=== PATIENT | female | born 1960 | race Caucasian/White ===

== ENCOUNTER 2018-09-24 11:22 | Inpatient (IN) | payer OTHER ==
[~2018-09-24] VITALS: Ht 167.6 cm; Wt 148.3 kg
[2018-09-24] MEDS ORDERED: IBUPROFEN 400 MG TABLET ONE ×2 (11:33→18:14)
--- NOTE | 2018-09-24 11:36 | NUR ---
[id number], C/O R KNEE PAIN S/P SLIPPED AND FALL, FROM HOME, PS 8. STATES WHEN LAYING DOWN, PAIN IS /10. AOX4, ROOM AIR, VSS. SKIN INTACT. READY FOR EVAL.
[2018-09-24] MEDS ORDERED: LOSA50TA39 PO (11:41)
[2018-09-24] MEDS ORDERED: INSU100I14 SQ (11:41)
[2018-09-24] MEDS ORDERED: ATOR40TA PO (11:41)
[2018-09-24] MEDS ORDERED: INSU100V27 SQ (11:41)
[2018-09-24] MEDS ORDERED: INSU200I4 SQ (11:41)
--- NOTE | 2018-09-24 11:42 | NUR ---
XRAY AT BEDSIDE
[2018-09-24] MEDS ORDERED: IBUPROFEN 400 MG TABLET PO ONE (12:00)
--- NOTE | 2018-09-24 13:11 | NUR ---
CALLED ORTHO FOR CONSULT. ZULEYMA ELDER IS BOOM MASTER, WAS PAGER.
--- NOTE | 2018-09-24 13:27 | NUR ---
CALLED HOUSE SU[facility] FOR MED-SURGE BED
--- NOTE | 2018-09-24 13:57 | NUR ---
PT ASLEEP IN BED, VSS. NO COMPLAINTS AT THIS TIME. WILL CONT TO MONITOR.
[2018-09-24 14:11] LABS: BASOPHILS # (AUTO) 0.1 /CMM (0.0-0.2); BASOPHILS % (AUTO) 0.5 % (0.0-2.0); EOSINOPHILS % (AUTO) 0.3 % (0.0-6.0); HEMATOCRIT 45 % (33-45); HEMOGLOBIN 14.7 g/dL (11.5-14.8); LYMPHOCYTES # (AUTO) 1.5 /CMM (0.8-4.8); LYMPHOCYTES % (AUTO) 11.6 % (20.0-44.0); MEAN CORPUSCULAR HGB CONC 33 g/dl (31.0-36.0); MEAN CORPUSCULAR VOLUME 91 fL (82-100); MONOCYTES # (AUTO) 0.8 /CMM (0.1-1.30); MONOCYTES % (AUTO) 5.8 % (2.0-12.0); NEUTROPHILS # (AUTO) 10.7 /CMM (1.8-8.9); NEUTROPHILS % (AUTO) 81.8 % (43.0-81.0); PLATELET COUNT (AUTO) 383 /CMM (150-450); RED BLOOD CELL COUNT(AUTO) 4.88 MIL/uL (4.0-5.2); WHITE BLOOD COUNT (AUTO) 13.1 K/uL (4.3-11.0)
[2018-09-24 14:17] LABS: CALCIUM, SERUM 9.3 mg/dL (8.5-10.1); POTASSIUM 4.3 mmol/L (3.5-5.1)
--- NOTE | 2018-09-24 14:30 | NUR ---
TRIED TO START IV PERIPHERAL LINE, PT REFUSED FOR NOW AND WOULD LIKE PO MEDICATION. MADE MD AWARE
[2018-09-24] MEDS ORDERED: ACETAMINOPHEN 325 MG TABLET PO PRN (15:00)
[2018-09-24] MEDS ORDERED: MAG HYDROX/AL HYDROX/SIMETH 30 ML UDC PO PRN (15:00)
[2018-09-24] MEDS ORDERED: MAGNESIUM HYDROXIDE 30 ML UDC PO PRN (15:00)
[2018-09-24] MEDS ORDERED: ZOLPIDEM TARTRATE 5 MG TABLET PO PRN (15:00)
[2018-09-24] MEDS ORDERED: ONDANSETRON HCL/PF 4 MG/2 ML VIAL IVP PRN (15:00)
--- NOTE | 2018-09-24 15:06 | NUR ---
INSERTED MACEDO CATH PER PROTOCOL. PT EKATERINA WELL.
--- NOTE | 2018-09-24 15:07 | NUR ---
REPAGED ZULEYMA MARTINEZ FOR ORTHO CONSULT
--- NOTE | 2018-09-24 15:31 | NUR ---
REPORT GIVEN TO SHARMILA NGUYEN OF MED-SURG UNIT FOR [facility]
--- NOTE | 2018-09-24 17:32 | NUR ---
PT MADE COMFORTABLE WITH EXTRA BLANKETS AND HEAD ADJUSTMENT. NO COMPLAINTS AT THIS TIME. VSS, WILL CONT TO MONITIOR.
[2018-09-24 18:30] VITALS: BP 142/71
[2018-09-24] MEDS: IBUPROFEN 400 MG TABLET PO PRN (18:30)
--- NOTE | 2018-09-24 18:30 | NUR ---
MS VIOLENT CRIMES DETECTIVE NOTE RECEIVED VT FROM ER VIA [facility] WITH DX OF RIGHT KNEE FX. PT IS ALERT AND ORIENTED X4. DENIES CHEST PAIN, SOB, N/V. BREATHING IS EVEN AND UNLABORED ON ROOM AIR. PT RATES PAIN IN THE RIGHT KNEE 3/10. PT IS ABLE TO WIGGLE TOES, DENIES ANY TINGLING, NUMBNESS OR CHANGES IN SENSATION AT THIS TIME, PEDAL PULSES STRONG AND EQUAL BILATERALLY. PT IS WITHOUT IV ACCESS AT THIS TIME AND WOULD LIKE TO DEFER INSERTION UNTIL LATER. PER ER NURSE VI, DR. GARCÍA IS AWARE. PT IS NOTED TO HAVE A MACEDO CATHETER WITH CLEAR, YELLOW URINE. VS OBTAINED PER PROTOCOL FOLLOWS BP: 142/71, HR: 88, R: 20, T: 98.3, SP02: 94%. ADMISSION ORDERS RECIVED FROM DR. GARCÍA. PENDING CLARIFICATION IF PT WILL HAVE SURGERY TONIGHT AND IF PT SHOULD BE NPO. UNIT ORIENTATION PROVIDED TO PT INCLUDING USE OF CALL SYSTEM. BED IS LOCKED AND IN LOWEST POSITION, SIDE RAILS UP X2, BED ALARM ON, CALL LIGHT AND POSSESSIONS WITHIN REACH. WILL DEFER ADMISSION DOCUMENTATION TO SENIOR GEOTECHNICAL ENGINEER NURSE.
--- NOTE | 2018-09-24 18:33 | NUR ---
MS RN NOTE CONTACTED ZULEYMA LEIJA REGARDING OTHO CONSULT, AWAITING RESPONSE.
--- NOTE | 2018-09-24 18:38 | NUR ---
PT TRANSFERRED TO [facility] VIA [facility]
--- NOTE | 2018-09-24 18:40 | NUR ---
MS RN NOTE PER PATRICIO FROM ER, PT RECEIVED 400MG OF MOTRIN PO PRIOR TO TRANSFER, HOWEVER SHE IS UNABLE TO NOTE IN EMAR. WILL INFORM WET PROCESS HEAD MILLER NURSE.
[2018-09-24 18:50] VITALS: BP 142/71
--- NOTE | 2018-09-24 19:30 | NUR ---
MS/RN RECEIVE PATIENT IN BED AWAKE, ALERT, ORIENTED, COMFORTABLE, WITH TOLERABLE PAIN LEVEL OF 4/10, NO DISTRESS NOTED, CALL LIGHT IN REACH. RAFFAELE FLOREZ
[2018-09-24 20:00] VITALS: BP 121/59
[2018-09-24] MEDS: IV NS 0.9% 1,000 ML IV PRN (20:18)
--- NOTE | 2018-09-24 20:33 | NUR ---
MS/RN NO IV ACCESS NOTED, INSERTED IV AT LEFT HAND G22. IVF STARTED ORDERED.
[2018-09-24] MEDS: HYDROCODONE/APAP 5/325MG 1 EACH TABLET PO PRN (20:51)
--- NOTE | 2018-09-24 20:56 | NUR ---
MS/CHIEF LIBRARIAN BRANCH OR DEPARTMENT DONE PER PROTOCOL, REFUSED SKIN ASSESSMENT AT THIS TIME, PATIENT REFUSED TO BE TURNED. TAUGHT THE USE OF CALL LIGHT AND PLACED IT AT BEDSIDE WITHIN REACH, PLAN OF CARE DISCUSSED, VERBALIZED UNDERSTANDING AND AGREEMENT, FALL PRECAUTION PER PROTOCOL INSTITUTED, WILL MONITOR.
[2018-09-25 06:31] LABS: BASOPHILS # (AUTO) 0.1 /CMM (0.0-0.2); HEMATOCRIT 41 % (33-45); HEMOGLOBIN 13.3 g/dL (11.5-14.8); LYMPHOCYTES # (AUTO) 1.4 /CMM (0.8-4.8); LYMPHOCYTES % (AUTO) 14.7 % (20.0-44.0); MEAN CORPUSCULAR HGB CONC 33 g/dl (31.0-36.0); MEAN CORPUSCULAR VOLUME 91 fL (82-100); MONOCYTES # (AUTO) 0.7 /CMM (0.1-1.30); NEUTROPHILS # (AUTO) 7.4 /CMM (1.8-8.9); NEUTROPHILS % (AUTO) 76.3 % (43.0-81.0); PLATELET COUNT (AUTO) 321 /CMM (150-450); RED BLOOD CELL COUNT(AUTO) 4.47 MIL/uL (4.0-5.2); WHITE BLOOD COUNT (AUTO) 9.8 K/uL (4.3-11.0)
--- NOTE | 2018-09-25 06:48 | NUR ---
MS/RN PATIENT IS SLEEPING, AROUSABLE, APPEAR COMFORTABLE, NO DISTRESS NOTED, CALL LIGHT IN REACH. ALL NEEDS ATTENDED AT THIS TIME, WILL CONTINUE TO MONITOR.
[2018-09-25 06:51] LABS: CREATININE 0.8 mg/dL (0.6-1.3); MAGNESIUM 1.4 mg/dL (1.8-2.4); POTASSIUM 4.1 mmol/L (3.5-5.1)
[2018-09-25 07:10] LABS: THYROID STIMULATING HORMONE 1.604 uIU/mL (0.358-3.74)
--- NOTE | 2018-09-25 07:45 | NUR ---
MS/RN - Assessment Patient awake, A/O x 4, here for right lateral tibial plateau fracture, reports mild pain to right knee but refused medication for now, stable on room air, henry catheter in place draining clear bailee urine. Patient refused skin assessment, stated "I don't have any wounds." Skin on BLE is warm to touch, denies numbness or tingling sensation on both lower ext, non-weight bearing on RLE. IVF NS at 75 ml/hr infusing well on the left hand with no signs of infiltration. Labs reviewed, noted with low magnesium, will notify Md. Awaiting ortho consult. Fall precautions maintained. All needs attended. Will continue with current plan of care.
[2018-09-25 08:00] VITALS: BP 128/83
[2018-09-25] MEDS: LOSARTAN POTASSIUM 50 MG TABLET PO SCH (09:17)
[2018-09-25] MEDS: ATORVASTATIN 40 MG TABLET PO SCH (09:17)
[2018-09-25] MEDS: IV NS 0.9% 1,000 ML IV PRN (09:20)
[2018-09-25] MEDS: HYDROCODONE/APAP 5/325MG 1 EACH TABLET PO PRN (09:37)
--- NOTE | 2018-09-25 10:00 | NUR ---
MS/RN - Consent Patient signed the consent for ORIF right lateral tibial plateau fracture, surgery scheduled for tomorrow 09/26/[address] Mancia. NPO after midnight.
[2018-09-25] MEDS: Magnesium 1GM/D5W 100ML PREMIX 100 ML IV SCH ×4 (10:06→13:17)
[2018-09-25 16:00] VITALS: BP 135/81
--- NOTE | 2018-09-25 16:54 | NUR ---
MS/RN - End of shift summary No new events seen. Patient resting comfortably, right knee pain well controlled, remain afebrile, magnesium replete with total of 4 gm IV. NS at 75 ml/hr infusing well on the left hand with no signs of infiltration. Patient will be NPO after midnight for surgery tomorrow. Will endorse to the night nurse accordingly.
--- NOTE | 2018-09-25 17:30 | NUR ---
MS/RN - Ortho Md Dr. Mancia at bedside, cancel ORIF, no surgery needed. Patient will be needing hinge knee brace locked in extension wear for 2 weeks, dc planning to ARU. Faxed face sheet and order to [facility] (T#[phone] F#[phone]).
--- NOTE | 2018-09-25 19:30 | NUR ---
MS/RN RECEIVE PATIENT APPEAR SLEEPING, APPEAR COMFORTABLE, NO DISTRESS NOTE, CALL LIGHT IN REACH. WILL MONITOR.
[2018-09-25 20:00] VITALS: BP 132/70
--- NOTE | 2018-09-26 01:11 | NUR ---
MS/RN PATIENT IS SLEEPING, AROUSABLE, NO DISTRESS NOTED, CALL LIGHT IN REACH. WILL CONTINUE TO MONITOR.
[2018-09-26] MEDS: IBUPROFEN 400 MG TABLET PO PRN (04:17)
[2018-09-26] MEDS: IV NS 0.9% 1,000 ML IV PRN (05:43)
--- NOTE | 2018-09-26 05:50 | NUR ---
MS/RN PATIENT IS AWAKE, MORNING CARE DONE, BED BATH DONE, TOTAL LINEN CHANGE DONE, F/C CARE DONE, REPOSITIONED TO COMFORT. [facility]
[2018-09-26 07:02] LABS: BASOPHILS # (AUTO) 0.1 /CMM (0.0-0.2); BASOPHILS % (AUTO) 0.9 % (0.0-2.0); EOSINOPHILS % (AUTO) 1.1 % (0.0-6.0); HEMATOCRIT 41 % (33-45); HEMOGLOBIN 13.6 g/dL (11.5-14.8); LYMPHOCYTES # (AUTO) 1.3 /CMM (0.8-4.8); LYMPHOCYTES % (AUTO) 11.9 % (20.0-44.0); MEAN CORPUSCULAR HGB CONC 33 g/dl (31.0-36.0); MEAN CORPUSCULAR VOLUME 91 fL (82-100); MONOCYTES # (AUTO) 0.7 /CMM (0.1-1.30); MONOCYTES % (AUTO) 6.6 % (2.0-12.0); NEUTROPHILS # (AUTO) 8.7 /CMM (1.8-8.9); NEUTROPHILS % (AUTO) 79.5 % (43.0-81.0); PLATELET COUNT (AUTO) 285 /CMM (150-450); WHITE BLOOD COUNT (AUTO) 10.9 K/uL (4.3-11.0)
[2018-09-26 07:16] LABS: ALBUMIN 3.1 g/dL (3.4-5.0); BILIRUBIN,TOTAL 0.5 mg/dL (0.2-1.0); CALCIUM, SERUM 8.8 mg/dL (8.5-10.1); CREATININE 0.8 mg/dL (0.6-1.3); MAGNESIUM 1.7 mg/dL (1.8-2.4); PHOSPHORUS 3.7 mg/dL (2.5-4.9); POTASSIUM 4.2 mmol/L (3.5-5.1); TOTAL PROTEIN, SERUM 7.3 g/dL (6.4-8.2)
--- NOTE | 2018-09-26 07:20 | NUR ---
RN OPENING NOTES RECEIVED PATIENT RESTING IN BED. A/OX4, ABLE TO MAKE NEEDS KNOWN. NOT IN ANY FORM OF DISTRESS, NO SOB. DENIED PAIN OR DISCOMFORT AT THIS TIME. IV ACCESS INTACT AND PATENT. KEPT PATIENT SAFE AND COMFORTABLE. BED IN LOW/LOCKED POSITION, SIDERAILS UPX2, CALL LIGHT IN REACH. WILL CONTINUE TO MONITOR ACCORDINGLY.
[2018-09-26 08:24] VITALS: BP 143/79
[2018-09-26] MEDS: ATORVASTATIN 40 MG TABLET PO SCH (08:34)
[2018-09-26] MEDS: LOSARTAN POTASSIUM 50 MG TABLET PO SCH (08:35)
[2018-09-26] MEDS ORDERED: DEXTROSE 50%-WATER 50 ML DISP.SYRIN IV PRN (09:00)
[2018-09-26] MEDS ORDERED: RIVAROXABAN 10 MG TABLET PO SCH ×2 (09:00→12:00)
[2018-09-26] MEDS: VALSARTAN 80 MG TABLET PO SCH (09:28)
--- NOTE | 2018-09-26 10:45 | NUR ---
daniela henry per md order. tolerated well. bedside commode provided.
[2018-09-26] MEDS: BLOOD SUGAR DIAGNOSTIC 1 EACH STRIP IN SCH ×3 (11:28→21:33)
[2018-09-26] MEDS: HYDROCODONE/APAP 5/325MG 1 EACH TABLET PO PRN ×2 (11:28→19:18)
[2018-09-26] MEDS ORDERED: MAGNESIUM OXIDE 400 MG TABLET PO ONE (11:30)
[2018-09-26] MEDS: Magnesium 1GM/D5W 100ML PREMIX 100 ML IV SCH ×2 (11:35→13:23)
[2018-09-26] MEDS: INSULIN REGULAR, HUMAN 100 UNIT/ML 3 ML VIAL SQ PRN ×3 (11:39→21:34)
[2018-09-26 16:00] VITALS: BP 136/68
--- NOTE | 2018-09-26 19:20 | NUR ---
rn closing notes patient in stable condition. all needs attended and provided. all due medications given as ordered. kept patient safe and comfortable. bed in low/locked position, siderails upx2, semifowlers, call light in reach. endorsed to night rn for kevin.
--- NOTE | 2018-09-26 19:26 | NUR ---
MS RN PT AWAKE WATCHING TV, RESPIRATIONS EVEN AND UNLABORED, NO SOB NOTED, NO DISTRESS, SAFETY MEASURES IN PLACE. WILL CONTINUE TO MONITOR.
[2018-09-26 20:00] VITALS: BP 129/62
[2018-09-27] MEDS: BLOOD SUGAR DIAGNOSTIC 1 EACH STRIP IN SCH ×2 (06:03→11:47)
[2018-09-27] MEDS: INSULIN REGULAR, HUMAN 100 UNIT/ML 3 ML VIAL SQ PRN ×2 (06:07→11:53)
--- NOTE | 2018-09-27 06:26 | NUR ---
MS RN CLOSING NOTE ASLEEP AND EASILY AWAKEN. NOT IN DISTRESS, TOLERATING ROOM AIR 99%. NWB RLE. NEEDS ATTENDED AND ANTICIPATED, KEPT CLEAN AND DRY AND COMFORT. AM CARE PROVIDED, SAFETY MEASURES IN PLACE, BED IN LOW LOCKED POSITION, CALL LIGHT WITHIN EASY REACH. ENDORSE TO NEXT SHIFT CONTINUITY OF CARE
--- NOTE | 2018-09-27 07:32 | NUR ---
MS RN OPENING NOTES PATIENT IS A/OX4. RECEIVED PATIENT IN STABLE CONDITION. IN NO APPARENT DISTRESS. BEDSIDE RAILS ARE UPX2. BED IS LOCKED AND LOWERED. CALL LIGHT IS WITHIN REACH. IV LINE IS INTACT AND PATENT. WILL CONTINUE TO MONITOR PATIENT.
[2018-09-27 08:00] VITALS: BP 134/80
[2018-09-27 08:07] LABS: CALCIUM, SERUM 8.9 mg/dL (8.5-10.1); CREATININE 0.9 mg/dL (0.6-1.3); MAGNESIUM 1.6 mg/dL (1.8-2.4); POTASSIUM 4.3 mmol/L (3.5-5.1)
[2018-09-27 08:34] VITALS: BP 134/80
[2018-09-27] MEDS: VALSARTAN 80 MG TABLET PO SCH (08:34)
[2018-09-27] MEDS: ATORVASTATIN 40 MG TABLET PO SCH (08:34)
--- NOTE | 2018-09-27 11:19 | NUR ---
PATIENT REFUSED DISCHARGE PICTURES. EXPLAINED REASONS FOR DISCHARGE SKIN ASSESSMENT AND PICTURES. PATIENT CONTINUES TO REFUSE.
[2018-09-27] MEDS ORDERED: MAGNESIUM OXIDE 400 MG TABLET PO ONE (12:00)
--- NOTE | 2018-09-27 16:13 | NUR ---
MACHINE ADJUSTER LEADER NOTES PATIENT DISCHARGED IN STABLE CONDITION. IN NO APPARENT DISTRESS. EXITCARE WAS SIGNED AND GIVEN TO [facility]. PATIENT REFUSED DISCHARGE PICTURES. BELONGINGS WERE CHECKED AND PROVIDED TO THE PATIENT. IV LINE AND ID BAND WERE REMOVED. ALL NEEDS WERE MET. PATIENT WAS ESCORTED OUT OF THE FACILITY VIA GURNEY BY EMERGENCY MEDICAL TEAM. REPORT WAS GIVEN TO WEST NGUYEN AT [facility] [phone].
== END 2018-09-27 16:17 | DRG 563 ==
LOC: ER 11:24 → MED 14:24
PROVIDERS: ATTEND Nurse Practitioner Acute Care
DX: S82.141A Displaced bicondylar fracture of right tibia, initial encounter for closed fracture (principal); Z68.43 Body mass index [BMI] 50.0-59.9, adult; E11.9 Type 2 diabetes mellitus without complications; I10 Essential (primary) hypertension; F32.9 Major depressive disorder, single episode, unspecified; W10.8XXA Fall (on) (from) other stairs and steps, initial encounter; Y92.89 Other specified places as the place of occurrence of the external cause; E66.01 Morbid (severe) obesity due to excess calories; K21.9 Gastro-esophageal reflux disease without esophagitis; G47.33 Obstructive sleep apnea (adult) (pediatric); D72.829 Elevated white blood cell count, unspecified; Z79.4 Long term (current) use of insulin
CPT/HCPCS: 36415; 71045-TC; 73564-TC; 73700-TC; 80048-TC; 80053-TC; 80061-TC; 82962-TC; 83735-TC; 84100-TC; 84443-TC; 85025-TC; 85730-TC; 87081-TC; 93307-TC; 97110-TC; 97116-TC; 97530-TC; G0378; J1815; J3475; J7030